=== PATIENT | male | born 1950 | race Caucasian/White ===

== ENCOUNTER 2017-07-28 06:32 | Day surgery (SDC) | payer MEDICARE, BC ==
[2017-07-28] MEDS ORDERED: Midazolam 1 MG/ML 2 ML SDV ONE (07:11)
[2017-07-28] MEDS ORDERED: fentaNYL 100 MCG/2 ML SDV ONE (07:11)
[2017-07-28] MEDS ORDERED: Propofol 200 MG/20 ML SDV ONE ×2 (07:11→07:50)
[2017-07-28] MEDS ORDERED: Lactated Ringers 1,000 ML IV SCH (07:30)
[2017-07-28 08:53] VITALS: BP 149/83
--- NOTE | 2017-07-28 10:32 | OR ---
DATE OF PROCEDURE: 07/28/2017 PREOPERATIVE DIAGNOSIS: History of tubulovillous adenoma. POSTOPERATIVE DIAGNOSES: Diverticulosis and history of tubulovillous adenoma. PROCEDURE: Colonoscopy to the cecum. SURGEON: Catarino Little MD ANESTHESIA: IV anesthesia with monitored anesthesia care. INDICATION: This 67-year-old white male is here for a colonoscopy. A year ago, he had a large polyp removed with a snare. This returned a tubulovillous adenoma. The area was tattooed. He is here for followup one year later to make sure this was entirely removed. I counseled him for the procedure, including risks and alternatives, and he gave his informed consent to proceed. DESCRIPTION OF PROCEDURE: The patient was placed in a left lateral decubitus position. IV anesthesia was administered by the Anesthesia Service. Time-out was held. A rectal exam was performed, which was unremarkable. The flexible video Olympus colonoscope was introduced through his anus, up his rectum, and out his colon, all the way to the cecum. We saw multiple left-sided diverticula. There was no bleeding or inflammation associated with any of them. Once the cecum was reached, the scope was slowly withdrawn, examining the mucosa throughout. No additional mucosal abnormalities were noted. No neoplastic lesions were seen. The scope was retroflexed in the rectum with the distal rectum appearing unremarkable. The scope was straightened and removed. He tolerated the procedure well. Catarino Little MD /[id number]
== END 2017-07-28 09:03 | disposition home or self-care (01) ==
LOC: JP.SDS 06:32
PROVIDERS: ATTEND Surgery
DX: Z12.11 Encounter for screening for malignant neoplasm of colon (principal); Z85.038 Personal history of other malignant neoplasm of large intestine; K57.30 Diverticulosis of large intestine without perforation or abscess without bleeding; F17.200 Nicotine dependence, unspecified, uncomplicated
CPT/HCPCS: G0105; J2250; J2704; J3010; J7120

== ENCOUNTER 2023-08-12 08:46 | Day surgery (SDC) | payer MEDICARE, BC ==
[2023-08-12] MEDS ORDERED: Propofol 200 MG/20 ML SDV ONE ×2 (09:24→10:14)
[2023-08-12] MEDS ORDERED: fentaNYL 50 MCG/ML SDV ONE (09:24)
[2023-08-12] MEDS: Sodium Chloride 0.9% 1,000 ML IV SCH (09:30)
[2023-08-12 11:09] VITALS: BP 159/86; PULSE 68
== END 2023-08-12 11:20 | disposition home or self-care (01) ==
LOC: JP.SDS 08:46
PROVIDERS: ATTEND Surgery
DX: Z12.11 Encounter for screening for malignant neoplasm of colon (principal); D12.2 Benign neoplasm of ascending colon; K57.30 Diverticulosis of large intestine without perforation or abscess without bleeding
CPT/HCPCS: 45380; 88305; J2704; J3010; J7030